=== PATIENT | female | born 2005 | race Caucasian/White ===

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

== ENCOUNTER 2025-03-28 16:46 | Emergency (ER) | payer OTHER, SELFPAY ==
--- OUTSIDE RECORDS SUMMARY | 2025-03-28 16:48 | XMS_ITS | Clinical Summary ---
Author Organization [facility] Address [address] [place] [address] Phone Care Team Providers Care Bow Machine Operator Name Role Phone Heather Holcomb MD Primary Care Provider Allergies No known active allergies Medications LevETIRAcetam (Keppra) 1000 MG Tablet Take 1,000 mg by mouth 2 times daily. Active Cholecalciferol (Vitamin D) 2000 UNIT Tablet Take 1 Tablet by mouth daily. Active Vitamin B-6 (PYRIDOXINE) 50 MG Tablet Take 50 mg by mouth 2 times daily. Active Active Problems Problem Noted Date Diagnosed Date Rapid heart rate 10/31/2024 Encounters Date Type Department Care Team Description 02/08/2025 1:14 AM CDT - 02/08/2025 2:41 AM CDT Emergency [facility] Emergency [address] [place] [address] Ty Webber MD Back pain Discharge Disposition: Discharged to home or Selfcare 02/08/2025 Travel from Last 3 Months Social History Tobacco Use Types Packs/Day Years Used Date Smoking Tobacco: Never Smokeless Tobacco: Never Tobacco Cessation:Counseling Given: Not Answered Alcohol Use Standard Drinks/Week Comments Never 0 (1 standard drink = 0.6 oz pur e alcohol) Comments No Sex and Gender Information Value Date Recorded Sex Assigned at Not on file Legal Sex Female 10:52 PM CDT Gender Identity Not on file Sexual Orientation Not on file Last Filed Vital Signs Vital Sign Reading Time Taken Comments Blood Pressure 142/89 02/08/2025 1:18 AM CDT Pulse 87 02/08/2025 1:18 AM CDT Temperature 36.9 C (98.5 F) 02/08/2025 1:18 AM CDT Respiratory Rate 16 02/08/2025 1:18 AM CDT Oxygen Saturation 100% 02/08/2025 1:18 AM CDT Inhaled Oxygen Concentration - - Weight 98.3 kg (216 lb 11.4 oz) 02/08/2025 1:18 AM CDT Height 167.6 cm (5' 6) 02/08/2025 1:18 AM CDT Body Mass Index 34.98 02/08/2025 1:18 AM CDT Plan of Treatment Health Maintenance Due Date Last Done Comments Hepatitis C Virus (HCV) Screening 2005 Influenza Immunization (#1) 02/23/202505/26, 03/26/2020, 04/09/2014 SARS-COV-2 Immunization ( season) 2025 01/18/2021, 12/21/2020 Respiratory Syncytial Virus (RSV) Immunization (Adult) (1 - 1-dose 75+ series) 2080 Hepatitis B Immunization Completed 006, 2005, 2005, Additional history exists Pneumococcal Immunization Combined Aged Out 03/27/2006, 2005, 2005, Additional history exists No longer eligible based on patient's age to complete this topic Hepatitis A Immunization Discontinued 11/05/2006, 08/2005 Measles Mumps Rubella (MMR) Immunization Discontinued 02/02/2011, 03/27/2006 Polio (IPV) Immunization Discontinued 011, 2005, 2005, Additional history exists Varicella Immunization Discontinued 02/02/2011, 2005 DTaP/Tdap/Td Immunization Discontinued 2015, 02/02/2011, 11/05/2006, Additional history exists TdaP Immunization Completed 04/28/2016 Human Papillomavirus (HPV) Immunization Completed 11/15/2016, 04/28/2016 Meningococcal Immunization (ACWY) Completed 06/21/2021, 04/28/2016 Meningococcal B Immunization Completed 12/29/2022, 06/21/2021 Rotavirus Immunization Aged Out No lo nger eligible based on patient's age to complete this topic Procedures Procedure Name Priority Date/Time Associated Diagnosis Comments CBC WITH AUTO DIFFERENTIAL STAT 02/08/2025 1:31 AM CDT LIPASE STAT 02/08/2025 1:31 AM CDT COMPLETE BLOOD COUNT (CBC) WITH DIFF STAT 02/08/2025 1:31 AM CDT CMP (COMPREHENSIVE METABOLIC PANEL) STAT 02/08/2025 1:31 AM CDT from Last 3 Months Results * (ABNORMAL) CBC with Auto Differential (02/08/2025 1:31 AM CDT) WBC 8.27 4.00 - 12.00 10(3)/mcL 02/08/2025 1:42 AM CDT [facility] RBC 4.26 3.80 - 5.30 10(6)/mcL 02/08/2025 1:42 AM CDT [facility] HEMOGLOBIN (HGB) 13.1 12.0 - 15.8 g/dL 02/08/2025 1:42 AM CDT [facility] HEMATOCRIT (HCT) 38.5 36.0 - 47.0 % 02/08/2025 1:42 AM CDT [facility] MCV 90.4 82.0 - 96.0 fL 02/08/2025 1:42 AM CDT [facility] MCH 30.8 26.0 - 34.0 pg 02/08/2025 1:42 AM CDT [facility] MCHC 34.0 31.0 - 36.0 g/dL 02/08/2025 1:42 AM CDT [facility] PLATELET COUNT 266 140 - 440 10(3)/mcL 02/08/2025 1:42 AM CDT [facility] RDW 11.9 11.8 - 15.5 % 02/08/2025 1:42 AM CDT [facility] MPV 11.8 9.7 - 12.4 fL 02/08/2025 1:42 AM CDT [facility] NEUTROPHILS 75.3(H) 47.0 - 73.0 % 02/08/2025 1:42 AM CDT [facility] LYMPHOCYTES 11.7(L) 18.0 - 42.0 % 02/08/2025 1:42 AM CDT [facility] MONOCYTES 12.0 4.0 - 12.0 % 02/08/2025 1:42 AM CDT [facility] EOSINOPHILS 0.2 0.0 - 5.0 % 02/08/2025 1:42 AM CDT [facility] BASOPHILS 0.4 0.0 - 1.0 % 02/08/2025 1:42 AM CDT [facility] IMMATURE GRANULOCYTE 0.4 0.0 - 0.4 % 02/08/2025 1:42 AM CDT [facility] Comment:Immature Granulocyte s includes Metamyelocytes, Myelocytes, and Promyelocytes. ABSOLUTE NEUTROPHILS 6.23 1.60 - 7.70 10(3)/[facility] 02/08/2025 1:42 AM CDT [facility] ABSOLUTE LYMPHOCYTES 0.97(L) 1.30 - 3.20 10(3)/[facility] 02/08/2025 1:42 AM CDT [facility] ABSOLUTE MONOCYTES 0.99 0.20 - 1.00 10(3)/[facility] 02/08/2025 1:42 AM CDT [facility] ABSOLUTE EOSINOPHIL 0.02 0.00 - 0.40 10(3)/[facility] 02/08/2025 1:42 AM CDT [facility] ABSOLUTE BASOPHILS 0.03 0.00 - 0.10 10(3)/[facility] 02/08/2025 1:42 AM CDT [facility] ABSOLUTE IMMATURE GRANULOCYTE 0.03 0.00 - 0.03 10 (3) mcL. 02/08/2025 1:42 AM CDT [facility] NRBC PER 100 WBC 0 02/09/20 25 1:42 AM CDT [facility] Blood Venipuncture / Unknown 02/08/2025 1:31 AM CDT 02/08/2025 1:40 AM CDT Ty Webber MD HEMATOLOGY ORDERABLES Fin al Result Performing Organization Address [facility]/ZIP Co de Phone Number [facility] [address] [place] [address] * Lipase [id number] (02/08/2025 1:31 AM CDT) LIPASE 33 8 - 78 U/L 02/08/2025 1:59 AM CDT [facility] Blood Venipuncture / Unknown 02/08/2025 1:31 AM CDT 02/08/2025 1:40 AM CDT Ty Webber MD CHEMISTRY ORDERABLES Alejandra l Result Performing Organization Address [facility]/ZIP Co de Phone Number [facility] [address] [place] [address] * (ABNORMAL) Comprehensive Metabolic Panel (Cmp) [id number] (02/08/2025 1:31 AM CDT) SODIUM 139 136 - 145 mmol/L 02/08/2025 1:59 AM CDT [facility] POTASSIUM 3.7 3.5 - 5.1 mmol/L 02/08/2025 1:59 AM CDT [facility] CHLORIDE 103 98 - 107 mmol/L 02/08/2025 1:59 AM CDT [facility] CO2, VENOUS 24 22 - 30 mmol/L 02/08/2025 1:59 AM CDT [facility] ANION GAP 15.7 <18.0 mmol/L 02/08/2025 1:59 AM CDT [facility] GLUCOSE 137(H) 70 - 99 mg/dL 02/08/2025 1:59 AM T [facility] BUN 13 5 - 18 mg/dL 02/08/2025 1:59 AM [facility] CREATININE, BLOOD 0.82 0.60 - 1.00 mg/dL 02/08/2025 1:59 AM T [facility] BUN/CREATININE RATIO 16 12 - 20 ratio 02/08/2025 1:59 AM T [facility] TOTAL PROTEIN 8.2(H) 6.0 - 8.0 g/dL 02/08/2025 1:59 AM T [facility] ALBUMIN 4.8 3.5 - 5.0 g/dL 02/08/2025 1:59 AM [facility] A/G RATIO 1.4 1.0 - 2.2 02/08/2025 1:59 AM T [facility] CALCIUM 9.6 8.7 - 10.5 mg/dL 02/08/2025 1:59 AM T [facility] T BILI 1.6(H) 0.2 - 1.2 mg/dL 02/08/2025 1:59 AM [facility] SGOT (AST) 777(H) <43 U/L 02/08/2025 1:59 AM [facility] SGPT (ALT) 450(H) <56 U/L 02/08/2025 1:59 AM [facility] ALKALINE PHOSPHATASE 108 40 - 150 U/L 02/08/2025 1:59 AM [facility] GFR, ESTIMATED >60 >=60 02/08/2025 1:59 AM [facility] Comment: Creatinine Clearance is the preferred criteria for selecting drug dose adjustments in renally impaired patients. The GFR is provided as additional pertinent clinical information. GFR is reported in mL/min/1.73 sq m. Calculation based on the 2020 Chronic Kidney Disease Epidemiology Collaboration (CKD-EPI) equation refit without adjustment for race. UNABLE TO CALCULATE GFR, EST. 025 1:59 AM CDT [facility] Comment: Creatinine Clearance is the preferred criteria for selecting drug dose adjustments in renally impaired patients. The GFR is provided as additional pertinent clinical information. GFR is reported in mL/min/1.73 sq m. Calculation based on the 2009 Chronic Kidney Disease Epidemiology Collaboration (CKD-EPI). GFR, EST. NONAFRICAN 02/08/2025 1:59 AM CDT [facility] Comment: Creatinine Clearance is the preferred criteria for selecting drug dose adjustments in renally impaired patients. The GFR is provided as additional pertinent clinical information. GFR is reported in mL/min/1.73 sq m. Calculation based on the 2009 Chronic Kidney Disease Epidemiology Collaboration (CKD-EPI). Blood Venipuncture / Unknown 02/08/2025 1:31 AM CDT 02/08/2025 1:40 AM CDT Ty Webber MD CHEMISTRY ORDERABLES Alejandra l Result [facility] [address] [place] [address] from Last 3 Months Insurance MEDICAID [employer] [facility]S [facility] [id number] [employer]ICAID [employer]ID [employer]ID [employer] Care Teams Bow Machine Operator Relationship Specialty Start Date End Date Heather Holcomb MD [address] [facility] [address] [place] [address] PCP - General Pediatrics 04/26/21
--- OUTSIDE RECORDS SUMMARY | 2025-03-28 16:48 | XMS_ITS | Clinical Summary ---
Author Organization [facility] Address [address] [place] [address] Care Team Providers Care Gym Teacher Name Role Phone Heather Holcomb MD Primary Care Provider Source Comments [facility],non-owned Affiliates and Associated Physician Practices is amultiple site organization consisting of ambulatory clinics and hospital sitesin [place], [place], [place] and [place]. This disclosure is being madepursuant to the Care Everywhere program and may not contain all information available regarding this patient. Last updated 18.[facility] Allergies No known active allergies Medications * Be aware that medications may not be up to date on this document. Alwaysverify current medications with the patient. diazePAM (Valtoco) 20 MG (2 x 10 MG/0.1ML) nasal spray [place] 0.2 mL into the nose as needed for Seizures Use first device to spray 0.1 mL into one nostril and the second device to spray 0.1 mL in the other nostril. Only use if seizure lasting 5 minutes or longer. 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 Encounters Date Type Department Care Team Description 01/19/2025 Refill [facility] Pediatric[facility] - Neurology [address] [place] [id number] Jorge Malagon MD Refill Request 01/09/2025 Telephone [facility] Pediatrics - Neurology [address] [place] [phone] Augustin Hernandez MD Medication Problem 01/07/2025 1:00 PM CDT - 01/08/2025 10:42 AM CDT Hospital Encounter [facility] [address] [phone] Trenton Kang MD Pediatric Neurology Discharge Disposition: Home or Self Care 01/07/2025 Travel from Last 3 Months Immunizations Immunization Administration Dates Next Due Cov8020select primary monoval ent 12+ yr 0.3mL Purple cap 01/18/2021 DTAP/HEP B/IPV 2005,2005,2005 DTAP/IPV 02/02/2011 DTaP VACCINE IM (6wk-6yrs) 11/05/2006 HEP A PED/ADULT VACCINE 11/05/2006,03/27/2006 HEP B VACCINE, PED/ADOL 2005 HIB VACCINE 03/27/2006, 6,2005,05/10 Human Papilloma Virus Nineva lent Vaccine 11/15/2016,04/28/2016 INFLUENZA VACCINE, QUADR. (F LUZONE; FLULAVAL; FLUARIX; AFLURIA QUADRIVALENT; 6MO+), 0.5 ML (IIV4) 06/21/2021,03/26/2020 MAINE VACCINE QUAD LAIV4 PF NASAL 04/09/2014 MENINGOCOCCAL ACWY (MCV4P) VAC IM 06/21/2021,09/2015 MMR VACCINE 02/02/2011 MMR/VARICELLA 03/27/2006 Meningococcal B Recombinant 2 Dose, IM 3,06/21/2021 PNEUMOCOCCAL PCV7 CONJ, PEDS 03/27/2006, 2005,2005,05/10 TDAP, HISTORIC VACCINE 04/28/2016 VARICELLA 02/02/2011 Social History Tobacco Use Types Packs/Day Years Used Date Smoking Tobacco: Never Passive Smoke Exposure: Never Smokeless Tobacco: Never Tobacco Cessation:Counseling Given: Not Answered Alcohol Use Standard Drinks/Week Comments Not Asked 0 (1 standard drink = 0.6 oz pur e alcohol) AUDIT-C Answer Date Recorded Q1: How often do you have a drink containing alc ohol? 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 Gender Identity Not on file Sexual Orientation Not on file Last Filed Vital Signs Vital Sign Reading Time Taken Comments Blood Pressure 118/73 01/08/2025 8:50 AM CDT Pulse 80 01/08/2025 8:50 AM CDT Temperature 36.4 C (97.6 F) 01/08/2025 8:50 AM CDT Respiratory Rate 18 01/08/2025 8:50 AM CDT Oxygen Saturation 100% 01/08/2025 8:50 AM CDT Inhaled Oxygen Concentration - - Weight 99.8 kg (220 lb 0.3 oz) 01/07/2025 2:00 P M CDT Height 171 cm (5' 7.32) 01/07/2025 2:00 PM CDT Body Mass Index 34.13 01/07/2025 2:00 PM CDT Plan of Treatment Health Maintenance Due Date Last Done Comments HIV SCREENING 2020 CHLAMYDIA/GONORRHEA SCREENING 2021 HEPATITIS C SCREENING 03/07/2023 DEPRESSION SCREENING 06/25/2024 COVID-19 VACCINE (2024-2 6 season) 2025 01/18/2021, 12/21/2020 INFLUENZA VACCINE (#1) 2025 , 03/26/2020, 04/09/2014 DTAP/TDAP/TD VACCINES (7 - T d or Tdap) 04/28/2026 04/28/2016, 02/02/2011, 11/05/2006, Additional history exists ZOSTER VACCINE (1 of 2) 2055 HEPATITIS B VACCINE Completed 2005, 2005, 2005, Additional history exists HIB VACCINE Completed 03/27/2006, 10/2005, 2005, Additional history exists PNEUMOCOCCAL VACCINE Completed 03/27/2006, 2005, 2005, Additional history exists HPV VACCINE Completed 11/15/2016, 04/28/2016 MENINGOCOCCAL GROUPS A/C/Y/W VACCINE Completed 06/21/2021, 04/28/2016 MENINGOCOCCAL (Group B) VACC INE SHARED DECISION-MAKING Completed 12/29/2022, 06/21/2021 Procedures Procedure Name Priority Date/Time Associated Diagnosis Comments EEG VIDEO MONITORING Routine 01/08/2025 10:36 AM CDT 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 (HCC) LEVETIRACETAM LEVEL Timed 01/07/2025 7 :56 PM CDT 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 (HCC) from Last 3 Months Results * EEG VIDEO MONITORING (01/08/2025 10:36 AM CDT) Narrative [facility] - 01/08/2025 10:36 AM CDT Trenton Kang MD 01/08/2025 12:56 PM Name: Neha Garcia CSN: [id number] Type: correction monitoring Date of Test: 12/23/2024 Ordering Provider: Trenton Kang MD PCP: Heather Holcomb MD Diploma Medical Assistant: Felix Irene MD UKE DRIVER MONITORING (LTM) EEG REPORT INDICATION: Characterize events Assess response to treatment Age: [age] year old LOCATION: Epilepsy monitoring unit DURATION: Start: 01/07/2025 13:41 End: 01/08/2025 10:06 The total duration for the report is for about 20 hours. PROCEDURE: A 21 channel digital audiovisual electroencephalogram was performed at the patient's bedside. The 10/20 International system of electrode placement was used and both bipolar and referential electrode montages were monitored. LTM EEG BACKGROUND During the awake state with eyes closed the background consists of 10 Hz posterior dominant rhythm which attenuates appropriately with eye opening. The recording is continuous. There is a well-developed anterior-posterior gradient. No significant asymmetries of background activity are noted. With drowsiness, there is waxing and waning of the dominant rhythm with eventual replacement by a mixture of beta, alpha and theta activity. As the patient enters stage II of sleep, symmetrical spindles and vertex sharp waves are present. Arousal is unremarkable. Slow wave sleep is noted during the EEG record.. Eye closure sensitivity phenomenon is present. Activation Procedures: Hyperventilation was not done due to patients preference. Photic stimulation using a step-barrios increase in photic frequency results in driving responses with photoparoxysmal effect mostly involving right posterior region. LTM EVENTS Interictal: There are occasional generalized 2-4 hz spike and polyspike with slow wave noted during sleep and awake state. The discharges are up to 3 seconds in duration. The bursts with rhythmic 3 hz delta are associated with eyelid myoclonia. None are associated with behavior arrest or unresponsiveness. Ictal: Clinically patient is noted to have eyelid fluttering for 1-2 seconds. Electrographically, following is sequence of onset and progression: posterior polyphasic sharp beta leading into generalized rhythmic 3 hz delta with notches and blended spikes, duration up to 3 seconds. Nearly always she raises her hand to the eyes during or immediately afterwards. No associated change in responsivity or behavior arrest. MARKED EVENTS: There are 10 marked event/s. 14:15, 18:51, 20:54, 22:26, 04:13, 07:59, 08:03, 08:04, 08:05, 08:10. LTM EEG INTERPRETATION This EEG recorded is moderately abnormal in awake and asleep states due to: Photoparoxysmal response in form of right posterior spikes without clinical manifestations Generalized epileptogenic dysfunction including 2-4 hz rhythmic patterns. Recorded episodes of eyelid myoclonia with generalized 3 hz rhythmic epileptiform EEG correlate LTM CLINICAL CORRELATION The EEG is diagnostic of epilepsy with generalized mechanism of seizure onset. 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 Recording verifies incomplete control of eyelid myoclonic seizures. None of the recorded episodes entailed a clear change in level of awareness. EKG is obtained only for the purpose of identifying artifact and will not be clinically interpreted. Therefore, clinical correlation is recommended. Augustin Hernandez MD Resident in pediatric neurology Entire EEG reviewed. Agree with report. Trenton Kang MD us Jorge [place] MD NEUROLOGY ORDERABLES Edited Resu lt - Final [facility] * LEVETIRACETAM LEVEL (01/07/2025 7:56 PM CDT) Levetiracetam 15 10 - 40 ug/mL 01/10/2025 2:37 PM CDT [facility] ([facility]) Comment: INTERPRETIVE INFORMATION: Keppra (Levetiracetam) Therapeutic Range: 10-40 ug/mL Toxic: Not well Established Pharmacokinetics of levetiracetam are affected by renal function. Adverse effects may include somnolence, weakness, headache and vomiting. This levetiracetam (Keppra) immunoassay uses the edenes reagents, which has known cross-reactivity with the drug brivaracetam (Briviact) and may report inaccurate results. Patients transitioning from levetiracetam to brivaracetam or those who are using both medications should not monitor drug concentrations with the edenes assay. These patients should be monitored using a validated chromatographic methodology that distinguishes between drugs to determine drug concentrations. Performed By: [facility] [address] [place] [address] Recreation Counselor: Lupillo Denton MD, PhD CLIA Number: [id number] Blood BLOOD SPECIMEN / Unknown Lab Venipuncture / Unknown 01/07/2025 7:56 PM CDT 01/07/2025 8:12 PM CDT Tracey Worthy [employer] REP LAB - THERAPEUTIC DRUG MONITORING ORDERABLES Final Result [facility] ([facility]) [address] [place] [address], [facility] from Last 3 Months Insurance [facility] Advance Directives * Full Code (Latest Code Status on File) Date Activated Date Inactivated Comments 08/04/2021 3:09 PM 08/05/2021 2:13 PM Care Teams Gym Teacher Relationship Specialty Start Date End Date Heather Holcomb MD PCP - General 08/19/14
--- OUTSIDE RECORDS SUMMARY | 2025-03-28 16:48 | XMS_ITS | Clinical Summary ---
Author Organization [facility] Address [address] [place] [address] Care Team Providers Care Mexican Food Cook Name Role Phone Jorge Malagon MD Unavailable [phone] No, Physician Primary Care Provider [phone] Allergies No known active allergies Medications cholecalciferol (VITAMIN D-3) 2000 unit tablet Take by mouth daily Active pyridoxine (VITAMIN B-6) 50 mg tablet Take 1 tablet (50 mg total) by mouth daily Active ondansetron ODT (ZOFRAN-ODT) 8 mg disintegrating tablet Take 1 tablet (8 mg total) by mouth every 8 (eight) hours as needed for nausea or vomiting 30 tablet 03/09/20 25 Active diazePAM (Valtoco) 20 mg/2 spray (10mg/0.1mL x2) spray,non-aerosol Administer 20 mg into affected nostril(s) as needed 11/09/19 23 Active levETIRAcetam (KEPPRA) 500 mg tablet Take 2 tablets (1,000 mg total) by mouth 2 (two) times a day Active oxyCODONE-acetamin ophen (PERCOCET) 5-325 mg per tabletIndications: Pain Take 1-2 tablets by mouth every 8 (eight) hours as needed for pain 20 tablet 03/23/20 25 Active levETIRAcetam (KEPPRA) 750 mg tabletIndications: 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) Take 2 tablets (1,500 mg total) by mouth 2 (two) times a day 120 tablet 5 12/17/19 25 025 Discontin ued(Dupli juan order) Active Problems Problem Noted Date Diagnosed Date Gallstones 03/12/2025 Complex partial seizures ashley lving to generalized tonic-clonic seizures 12/16/2024 Closed supracondylar fracture of humerus 015 Encounters Date Type Department Care Team Description 03/23/2025 7:36 AM CDT Anesthesia Event [facility] Operating Room [address] [place] [address] Oseas Araujo MD Alexander, Jeffrey Michael, 03/23/2025 7:30 AM CDT - 03/23/2025 8:45 AM CDT Surgery [facility] Operating Room [address] [place] [address] Mendoza Crum MD LAPAROSCOPIC CHOLECYSTECTOMY 03/23/2025 5:46 AM CDT - 03/23/2025 11:38 AM CDT Hospital Encounter [facility] Operating Room [address] [place] [address] Mendoza Crum MD Gallstones Discharge Disposition: Discharge to home or self care 03/12/2025 11:00 AM CDT Office Visit [address] [place] [address] Mendoza Crum MD Gallstones (Primary Dx) 03/09/2025 4:59 AM CDT - 03/09/2025 7:12 AM CDT Emergency [facility] Emergency Department [address] [place] [address] Chaitanya Beltre MD Biliary colic (Primary Dx) Discharge Disposition: Discharge to home or self care 02/18/2025 7:12 AM CDT - 02/18/2025 10:01 AM CDT Emergency [facility] Emergency Department [address] [place] [address] Meli Power MD Chronic bilateral thoracic back pain (Primary Dx) Discharge Disposition: Discharge to home or self care from Last 3 Months Surgical History Surgery Date Site/Laterality Comments FRACTURE SURGERY elbow as a child Medical History Medical History Date Comments Epilepsy (HCC) abscense last on e was November 28 2022 Palpitations Family History Medical History Relation Name Comments Diabetes Other 5 Family Hx Diabetes mellit us; Heart attack Other 5 Family Hx Myocardial infa rction; Before age 60 Hypertension Other 5 Family Hx Hypertension; Cancer Other 6 Family hx Cancer; Relation Name Status Comments Other 1 Family Hx Alive Other 2 Family Hx Alive Other 3 Family Hx Alive Other 4 Family hx Alive Other 5 Family Hx Other 6 Family hx Social History Tobacco Use Types Packs/Day Years Used Date Smoking Tobacco: Never Smokeless Tobacco: Never Tobacco Cessation:Counseling Given: Not Answered Alcohol Use Standard Drinks/Week Comments Never 0 (1 standard drink = 0.6 oz pur e alcohol) AUDIT-C Answer Date Recorded Frequency of Alcohol Consumption Not on file 03/23/2025 Q2: How many drinks containi ng alcohol do you have on a typical day when you are drinking? Patient does not drink Frequency of Binge Drinking Not on file 02/24 Personal Safety Answer Date Recorded Have you ever been in or are you currently in a harmful physical or emotional relationship or is someone making you feel afraid or unsafe? Denies 03/23/2025 Comments No Sex and Gender Information Value Date Recorded Sex Assigned at Not on file Legal Sex Female 3:00 AM [employer]IV[employer] Gender Identity Not on file Sexual Orientation Not on file Obstetrics History Para Term AB IAB SAB Ectopic Multiple Livin g Live Births 0 0 0 0 0 0 0 0 0 0 0 Last Filed Vital Signs Vital Sign Reading Time Taken Comments Blood Pressure 116/73 03/23/2025 10:30 AM CDT Pulse 62 03/23/2025 10:30 AM CDT Temperature 36.6 C (97.9 F) 03/23/2025 10:30 AM CDT Respiratory Rate 16 03/23/2025 10:30 AM CDT Oxygen Saturation 96% 03/23/2025 10:30 AM CDT Inhaled Oxygen Concentration - - Weight 99.5 kg (219 lb 5.7 oz) 03/23/2025 6:25 A M CDT Height 167.6 cm (5' 6) 03/23/2025 6:25 AM CDT Body Mass Index 35.41 03/23/2025 6:25 AM CDT Plan of Treatment Health Maintenance Due Date Last Done Comments Depression Screening 2005 Hepatitis C Screening 2005 Regular Well Visit/Exam 18-64 2023 Covid-19 Vaccine (3 2024-2 6 season) 2025 01/18/2021, 12/21/2020 Influenza Vaccine (#1) 2025 , 03/26/2020, 04/09/2014 DTaP/Tdap/Td Vaccine (7 - Td or Tdap) 04/28/2026 04/28/2016, 02/02/2011, 11/05/2006, Additional history exists Hepatitis B Screening Completed 2005 , 2005, 2005, Additional history exists Pneumococcal vaccine <65 Completed 006, 2005, 2005, Additional history exists Varicella Vaccines Completed 02/02/2011, 03/27/2006 HPV Vaccines Completed 11/15/2016, 04/28/2016 Meningococcal Vaccine Completed 06/21/2021, 016 Meningococcal B Vaccine Completed 12/29/2022, 06/21 Procedures Procedure Name Priority Date/Time Associated Diagnosis Comments SURGICAL PATHOLOGY Routine 03/23/2025 9: 58 AM CDT Gallstones AR AN ELECTIVE ENDOTRACHEAL AIRWAY Routine 03/23/2025 7:55 AM CDT LAPAROSCOPIC CHOLECYSTECTOMY 03/23/2025 7:35 AM CDT Gallstones POCT HCG, URINE Routine 03/23/2025 6:10 AM CDT POCT HCG, URINE STAT 03/09/2025 6:43 AM CDT URINALYSIS AND REFLEX TO MICROSCOPIC AND CULTURE STAT 03/09/2025 6:33 AM CDT EGFR STAT 03/09/2025 5:18 AM CDT DIFFERENTIAL AUTO STAT 03/09/2025 5:1 8 AM CDT LIPASE STAT 03/09/2025 5:18 AM CDT COMPREHENSIVE METABOLIC PANEL STAT 03/09/2025 5:18 AM CDT CBC WITH AUTO DIFFERENTIAL STAT 03/09/2025 5:18 AM CDT URINALYSIS, MICROSCOPIC ONLY STAT 02/18/2025 8:54 AM CDT URINALYSIS AND REFLEX TO MICROSCOPIC AND CULTURE STAT 02/18/2025 8:54 AM CDT XR SPINE LUMBAR 2 OR 3 VIEWS ED 02/18/2025 7:46 AM CDT XR SPINE THORACIC 3 VIEWS ED 02/18/2025 7:46 AM CDT from Last 3 Months Results * Surgical pathology (03/23/2025 9:58 AM CDT) Tissue (Gallbladder) 03/23/2025 8:24 AM CDT Narrative PATHOLOGY [facility] - 03/24/2025 2:54 PM CDT EPIC results best viewed via link to PDF [facility] Department of Pathology [address] [place] [address] Note to Patients: This report may contain a detailed description of human tissue sent by a health care provider to the laboratory for pathologic evaluation. The content of this report is essential for diagnosis and may provide important critical findings. This information may be unfamiliar to patients to review without a medical professional present. It is advised that the patient review this report in the presence of a health care provider who can answer questions and explain the details. Final Report Patient Name: NEHA GARCIA I. Address: [address] [place] [address]- Gender: F : 2005 (Age: 20) Service: Surgery Location: [facility] Hospital #: [id number] Patient Type: [facility] Taken: 03/23/2025 Received: 03/23/2025 Accessioned: 03/23/2025 Reported: 03/24/2025 Physician(s):Mendoza Crum M.D. Diagnosis: Gallbladder, laparoscopic cholecystectomy: - Gallbladder with sparse chronic inflammation and focal cholesterolosis. - Cholelithiasis. - No evidence of malignancy. Darron Cruz MD Report Electronically Reviewed and Signed Out By Darron Cruz MD 03/24/2025 14:54:26 Specimen(s) Received: A: Gallbladder Microscopic Description: Microscopic examination of the gallbladder specimen shows sparse chronic inflammation and focal cholesterolosis. There is no evidence of malignancy. Clinical History: Gallstones. Laparoscopic cholecystectomy. Gross Description: The specimen is received in a single container labeled NEHA GARCIA and gallbladder. It is a gallbladder that measures 7 x 4 cm. The serosa is pink-mcfarland and smooth. The wall measures up to 0.1 cm in thickness. The lumen contains green brown bile and multiple yellow granular stones between 1 and 9 mm. The mucosa is mcfarland and velvety. The cystic duct margin is inked blue. Represented in one cassette. Tami Connelly R.N., P.A./Allan Israel M.D. REPORT IMAGES AND SCANNED DOCUMENTS, IF INCLUDED, ONLY VIEWABLE IN PDF VERSION OF REPORT The performance characteristics of some immunohistochemical stains, fluorescence in-situ hybridization tests and immunophenotyping by flow cytometry cited in this report (if any) were determined by the Surgical Pathology Department at [facility] as part of an ongoing microbiology quality control technician program and in compliance with federally mandated regulations drawn from the Clinical Laboratory Improvement Act of 1988 (CLIA '88). Some of these tests rely on the use of analyte specific reagents and are subject to specific labeling requirements by the US Food and Drug Administration. Such diagnostic tests may only be performed in a facility that is certified by the Department of Health and Human Services as a high complexity laboratory under CLIA '88. The FDA has determined that such clearance or approval is not necessary. This test is used for clinical purposes. It should not be regarded as investigational or for research. Nevertheless, federal rules concerning the medical use of analyte specific reagents require that the following disclaimer be attached to the report: This test was developed and its performance characteristics determined by the Surgical Pathology Department [facility]. It has not been cleared or approved by the U. S. Food and Drug Administration. Note for decalcified specimens: This assay has not been validated on decalcified tissues. Results should be interpreted with caution given the possibility of false negativity on decalcified specimens Mendoza Crum MD LAB PATHOLOGY ORDER LILI Final Result PATHOLOGY [facility] [address] [place] [address] * AR AN ELECTIVE ENDOTRACHEAL AIRWAY (03/23/2025 7:55 AM CDT) Narrative Sarika Reynoso CRNA - 03/23/2025 7:55 AM CDT Sarika Reynoso CRNA 03/23/2025 7:56 AM Airway Patient location: OR Urgency: elective Date/time: 03/23/2025 7:43 AM Indications for airway management: anesthesia and airway protection Difficult airway: no Staff: Placed by: PROPERTY ASSESSMENT MONITOR: Sarika Reynoso CRNA Emergent airway documentation: Risks and benefits discussed: yes Consent obtained: yes Consent given by: patient Airway prep: Preoxygenated: yes Patient position: sniffing Mask difficulty assessment: 1 - vent by mask Sedation level during airway: GA Final airway details: Final airway type: endotracheal airway Tube type: ETT ETT size: 7.0 mm Cuffed: yes Technique used for successful ETT placement: video laryngoscopy Devices/Methods used in placement: intubating stylet Insertion site: oral Blade type: Obi Video blade type: Garza Blade size: 3 Cormack-Lehane (video): grade I - full view of glottis Cuff volume: 6 mL Cuff inflated with: air ETT to lips: 21 cm Placement verified by: auscultation and CO2 detection Airway secured with: silk tape and transpore tape Number of attempts: 1 Sarika Reynoso CRNA ANESTHESIA ORDERABLES Final Result * POCT hCG, urine (03/23/2025 6:10 AM CDT) HCG, ur, POC Negative Negative Lot Number [id number] QC Backgroud Clear Acceptable QC Control Line Acceptable Urine 03/23/2025 6:10 AM CDT Barrett Tavares DO POINT OF CARE TEST ORDERABLES Final Result * POCT hCG, urine (03/09/2025 6:43 AM CDT) HCG, ur, POC Negative Negative Lot Number [id number] QC Backgroud Clear Acceptable QC Control Line Acceptable Urine 03/09/2025 6:43 AM CDT Chaitanya Beltre MD POINT OF CARE TEST ORDERABLES Final Result * Urinalysis reflex to microscopic and culture Urine (03/09/2025 6:33 AM CDT) Color, ur Straw Yellow Clarity, ur Clear Clear [facility] ([facility]) Specific gravity, ur 1.007 1.003 - 1.030 [facility] ([facility]) pH, urine 5.5 [facility] ([facility]) Comment: Interpretive Data U rine pH is affected by diet, medications, systemic acid-base disturbances, and renal tubular function. pH may affect urinary stone formation. For example, urine pH below 6.0 may help reduce the tendency for calcium phosphate stones and pH greater than 6.0 may reduce the tendency for uric acid stone formation. Source: [facility] [employer] Current Interpretive Data was last revised on 2017 Protein, ur ql Negative Negative [facility] ([facility]) Glucose, ur ql Negative Negative [facility] ([facility]) Ketones, ur Negative Negative [facility] ([facility]) Bilirubin, ur Negative Negative [facility] ([facility]) Blood, ur Negative Negative [facility] ([facility]) Urobilinogen, ur <2.0 <2.0 mg/dL [facility] ([facility]) Nitrite, ur Negative Negative [facility] ([facility]) Leukocyte esterase, ur Negative Negative [facility] ([facility]) UA reflex comment Reflex conditions for microscopic UA and culture not met. [facility] ([facility]) Urine 03/09/2025 6:33 AM CDT 03/09/2025 6:48 AM CDT us Chaitanya Beltre MD LAB MICROBIOLOGY - GENERAL ORDERABLES Final Result [facility] ([facility]) 1 [facility] Department [place] [address] * eGFR (03/09/2025 5:18 AM CDT) eGFR >90 >=60 mL/min/1. 73 m2 Comment: Interpretive Data Reference Interval Normal >/= 90 mL/min/1.73m2 Mildly decreased* 60 - 89 mL/min/1.73m2 Mildly to moderately decreased 45 - 59 mL/min/1.73m2 Moderately to severely decreased 30 - 44 mL/min/1.73m2 Severely decreased 15 - 29 mL/min/1.73m2 Kidney Failure < 15 mL/min/1.73m2 *Relative to young adult level Estimated glomerular filtration rate is determined by the 2020 CKD-EPI equation recommended by the National Kidney Foundation (A Unifying Approach to GFR Estimation: Recommendations of the NKF-ASK Task Force on Reassessing the Inclusion of Race in Diagnosing Kidney Disease, JASN 2020). The CKD-EPI equation should not be used for patients with unstable renal function and has not been validated in children and those over 70. Current interpretive data was last reviewed 2021. Blood 03/09/2025 5:18 AM CDT 03/09/2025 5:21 AM CDT us Chaitanya Beltre MD LAB BLOOD ORDERABLE S Final Result [facility] 1 [facility] Department [place] [address] * (ABNORMAL) Differential, auto (03/09/2025 5:18 AM CDT) Neutrophil abs 4.98 1.50 - 6.50 K/cumm Imm gran abs 0.03 0.00 - 0.10 K/cumm [facility] ([facility]) Lymphocyte abs 2.18 0.80 - 3.30 K/cumm [facility] ([facility]) Monocyte abs 0.82(H) 0.20 - 0.80 K/cumm [facility] ([facility]) Eosinophil abs 0.10 0.00 - 0.50 K/cumm [facility] ([facility]) Basophil abs 0.03 0.00 - 0.10 K/cumm [facility] ([facility]) Neutrophil pct 61.1 % [facility] ([facility]) Comment: Interpretive Data Percent cell count reference ranges are not reported, since discordance with absolute values may lead to misinterpretation of CBC data. Current Interpretive Data was last revised on 2017. Imm gran pct 0.4 % [facility] ([facility]) Comment: Interpretive Data Percent cell count reference ranges are not reported, since discordance with absolute values may lead to misinterpretation of CBC data. Current Interpretive Data was last revised on 2017. Lymphocyte pct 26.8 % [facility] ([facility]) Comment: Interpretive Data Percent cell count reference ranges are not reported, since discordance with absolute values may lead to misinterpretation of CBC data. Current Interpretive Data was last revised on 2017. Monocyte pct 10.1 % [facility] ([facility]) Comment: Interpretive Data Percent cell count reference ranges are not reported, since discordance with absolute values may lead to misinterpretation of CBC data. Current Interpretive Data was last revised on 2017. Eosinophil pct 1.2 % [facility] ([facility]) Comment: Interpretive Data Percent cell count reference ranges are not reported, since discordance with absolute values may lead to misinterpretation of CBC data. Current Interpretive Data was last revised on 2017. Basophil pct 0.4 % [facility] ([facility]) Comment: Interpretive Data Percent cell count reference ranges are not reported, since discordance with absolute values may lead to misinterpretation of CBC data. Current Interpretive Data was last revised on 2017. Blood 03/09/2025 5:18 AM CDT 03/09/2025 5:21 AM CDT us Chaitanya Beltre MD LAB BLOOD ORDERABLE S Final Result [facility] ([facility]) 1 [facility] Department [place] [address] * CBC with auto differential (03/09/2025 5:18 AM CDT) WBC 8.14 3.80 - 9.90 K/cumm Hgb 12.3 11.9 - 15.5 g/dL [facility] ([facility]) Hct 37.2 35.6 - 45.5 % [facility] ([facility]) Plt 261 150 - 400 K/cumm [facility] ([facility]) MPV 11.4 9.1 - 12.3 fL [facility]) RBC 3.99 3.90 - 5.20 M/cumm [facility] ([facility]) MCV 93.2 81.3 - 96.4 fL [facility]) MCH 30.8 27.1 - 33.3 pg [facility]) MCHC 33.1 32.3 - 35.7 g/dL [facility]) RDW CV 11.8 11.1 - 14.9 % [facility]) RDW SD 40.0 35.7 - 48.1 fL [facility]) NRBC abs 0.00 0.00 - 0.01 K/cumm [facility] ([facility]) Blood 03/09/2025 5:18 AM CDT 03/09/2025 5:21 AM CDT us Chaitanya Beltre MD LAB BLOOD ORDERABLE S Final Result [facility] ([facility] [address] [facility] [place] [address] * (ABNORMAL) Lipase (03/09/2025 5:18 AM CDT) Lipase 124(H) 10 - 99 Units/L [facility] ([facility]) Blood 03/09/2025 5:18 AM CDT 03/09/2025 5:21 AM CDT us Chaitanya Belter MD LAB BLOOD ORDERABLE S Final Result [facility] 1 [facility] [place] [address] * (ABNORMAL) Comprehensive metabolic panel (03/09/2025 5:18 AM CDT) Sodium 138 135 - 145 mmol/L [facility] ([facility]) Potassium, pl 4.2 3.3 - 4.9 mmol/L [facility]) Chloride 105 97 - 110 mmol/L [facility]) CO2 21(L) 22 - 32 mmol/L [facility]) Anion gap 12 2 - 15 mmol/L [facility]) BUN 10 6 - 25 mg/dL [facility]) Creatinine 0.74 0.60 - 1.10 mg/dL [facility] ([facility]) Glucose 110 70 - 199 mg/dL [facility] ([facility]) Comment: Interpretive Data Fasting glucose >/= 126 mg/dl is diagnostic for diabetes. Fasting is defined as no caloric intake for at least 8 hours. Fasting glucose between 100 mg/dl to 125 mg/dl is diagnostic of prediabetes. In a patient with classic symptoms of hyperglycemia or hyperglycemic crisis, a random glucose >/= 200 mg/dl is diagnostic for diabetes. In the absence of unequivocal hyperglycemia, results should be confirmed by repeat testing. The classification and Diagnosis of Diabetes Diabetes Care 202; 46: S19-S40. Current interpretive data was last revised 2022. Calcium 9.4 8.5 - 10.3 mg/dL [facility]) Bilirubin, total 0.3 0.1 - 1.2 mg/dL [facility] ([facility]) Protein, pl 7.2 6.5 - 8.5 g/dL [facility] ([facility]) Albumin 4.2 3.5 - 5.0 g/dL [facility]) Alk phos 75 40 - 130 Units/L [facility]) ALT 40 7 - 45 Units/L [facility]) AST 55(H) 10 - 45 Units/L [facility] ([facility]) Comment:Hemolysis present. R esults may be affected. Blood 03/09/2025 5:18 AM CDT 03/09/2025 5:21 AM CDT us Chaitanya Beltre MD LAB BLOOD ORDERABLE S Final Result [facility] ([facility]) [address] Department [place] [address] * (ABNORMAL) Urinalysis reflex to microscopic and culture Urine (02/18/2025 8:54 AM CDT) Color, ur Yellow Yellow Clarity, ur Clear Clear [facility]) Specific gravity, ur 1.019 1.003 - 1.030 [facility] ([facility]) pH, urine 7.0 [facility] ([facility]) Comment: Interpretive Data U rine pH is affected by diet, medications, systemic acid-base disturbances, and renal tubular function. pH may affect urinary stone formation. For example, urine pH below 6.0 may help reduce the tendency for calcium phosphate stones and pH greater than 6.0 may reduce the tendency for uric acid stone formation. Source: [facility] Current Interpretive Data was last revised on 2017 Protein, ur ql Negative Negative [facility] ([facility]) Glucose, ur ql Negative Negative [facility] ([facility]) Ketones, ur Negative Negative [facility] ([facility]) Bilirubin, ur Negative Negative [facility] ([facility]) Blood, ur Negative Negative [facility] ([facility]) Urobilinogen, ur <2.0 <2.0 mg/dL [facility] ([facility]) Nitrite, ur Negative Negative [facility]) Leukocyte esterase, ur 2+(A) Negative [facility] ([facility]) UA reflex comment Reflex to microscopic UA will be performed. [facility] ([facility]) Urine 02/18/2025 8:54 AM CDT 02/18/2025 8:57 AM CDT us Meli Power MD LAB MICROBIOLOGY - GENERA L ORDERABLES Final Result [facility] ([facility] 1 [facility] [place] [address] * (ABNORMAL) Urinalysis, microscopic only (02/18/2025 8:54 AM CDT) WBC, ur 0-5 0 - 5 /HPF RBC, ur 0-2 0 - 2 /HPF [facility] ([facility]) Epithelial cells, squamous, ur 1-5 0 - 5 /HPF [facility] Mucous, ur Present(A) [facility] ([facility]) Culture Reflex Comment Reflex conditions for urine culture (WBC >10) not met. [facility] ([facility] Urine 02/18/2025 8:54 AM CDT 02/18/2025 8:57 AM CDT Meli Power MD LAB URINE ORDERABLES Alejandra dover Result [facility] 1 [facility] Department [place] [address] * XR Spine Lumbar 2 or 3 Views (02/18/2025 7:46 AM CDT) Anatomical Region Laterality Modality Spine N/A Computed Radiogr aphy 02/18/2025 8:39 AM CDT Narrative 02/18/2025 8:40 AM CDT EXAM DESCRIPTION: 1. XR SPINE THORACIC 3 VIEWS; XR SPINE LUMBAR 2 OR 3 VIEWS REASON FOR STUDY: pain back pain since today. Pt reports her whole back hurts. No known injury. Pt reports she has had this pain before and was checked out pain mostly mid left side FINDINGS: Three views of the thoracic spine and three views of the lumbar spine are submitted for interpretation. No prior examination is available for comparison. Alignment of the thoracic spine is anatomic. The disc heights are normal. No compression fracture. Mild lumbar levocurvature. Disc heights are normal. No compression fracture. IMPRESSION: 1. Normal thoracic and lumbar spine radiographs. THIS IS AN ELECTRONICALLY VERIFIED FINAL REPORT 02/18/2025 8:40 AM - Electronically signed by Raymon Hernandez M.D. TH: TH Report ID: [id number] Reading Location: [place] [address] Procedure Note Raymon Hernandez MD - 02/18/2025 EXAM DESCRIPTION: 1. XR SPINE THORACIC 3 VIEWS; XR SPINE LUMBAR 2 OR 3 VIEWS REASON FOR STUDY: pain back pain since today. Pt reports her whole back hurts. No known injury.Pt reports she has had this pain before and was checked out pain mostly midleft side FINDINGS: Three views of the thoracic spine and three views of the lumbar spine are submitted for interpretation. No prior examination is available for comparison. Alignment of the thoracic spine is anatomic. The disc heights are normal.No compression fracture. Mild lumbar levocurvature. Disc heights are normal. No compressionfracture. IMPRESSION: 1. Normal thoracic and lumbar spine radiographs. THIS IS AN ELECTRONICALLY VERIFIED FINAL REPORT 02/18/2025 8:40 AM - Electronically signed by Raymon Hernandez M.D. TH: TH Report ID: [id number] Reading Location: [place] [address] Meli Power MD IMG XR PROCEDURES Final R esult * XR Spine Thoracic 3 Vw (02/18/2025 7:46 AM CDT) Anatomical Region Laterality Modality Spine N/A Computed Radiogr aphy 02/18/2025 8:39 AM CDT Narrative 02/18/2025 8:40 AM CDT EXAM DESCRIPTION: 1. XR SPINE THORACIC 3 VIEWS; XR SPINE LUMBAR 2 OR 3 VIEWS REASON FOR STUDY: pain back pain since today. Pt reports her whole back hurts. No known injury. Pt reports she has had this pain before and was checked out pain mostly mid left side FINDINGS: Three views of the thoracic spine and three views of the lumbar spine are submitted for interpretation. No prior examination is available for comparison. Alignment of the thoracic spine is anatomic. The disc heights are normal. No compression fracture. Mild lumbar levocurvature. Disc heights are normal. No compression fracture. IMPRESSION: 1. Normal thoracic and lumbar spine radiographs. THIS IS AN ELECTRONICALLY VERIFIED FINAL REPORT 02/18/2025 8:40 AM - Electronically signed by Raymon Hernandez M.D. TH: TH Report ID: [id number] Reading Location: [id number] Procedure Note Raymon Hernandez MD - 02/18/2025 EXAM DESCRIPTION: 1. XR SPINE THORACIC 3 VIEWS; XR SPINE LUMBAR 2 OR 3 VIEWS REASON FOR STUDY: pain back pain since today. Pt reports her whole back hurts. No known injury.Pt reports she has had this pain before and was checked out pain mostly midleft side FINDINGS: Three views of the thoracic spine and three views of the lumbar spine are submitted for interpretation. No prior examination is available for comparison. Alignment of the thoracic spine is anatomic. The disc heights are normal.No compression fracture. Mild lumbar levocurvature. Disc heights are normal. No compressionfracture. IMPRESSION: 1. Normal thoracic and lumbar spine radiographs. THIS IS AN ELECTRONICALLY VERIFIED FINAL REPORT 02/18/2025 8:40 AM - Electronically signed by Raymon Hernandez M.D. TH: Report ID: [id number] Reading Location: [id number] Meli Power MD IMG XR PROCEDURES Final R esult from Last [address] [place] [address] [facility] Member Subscriber Plan / Payer (Ef fective 2022-Present) Name:Neha Garcia I Relation to Subscriber:Self Name:GarciaNeha I Payer ID:[id number] (NAIC) Group ID:Not on file Type:MEDICAID RISK OTHER Address: ATTN: CLAIMS DEPT [address] [place] [id number] [facility] Care Teams Mexican Food Cook Relationship Specialty Start Date End Date No, Physician PCP - General 02/18/25 Jorge Malagon MD Neurology 11/28/22
[2025-03-28 16:52] VITALS: BP 133/71; PULSE 103; RESP 20; TEMP 36.6; O2SAT 100
--- NOTE | 2025-03-28 17:22 | ED_ITS ---
HPI - Extremity Problem General Chief complaint: Extremity Problem,Nontraumatic Stated complaint: left leg pain Time Seen by Provider: 03/28/25 17:00 Source: patient and RN notes reviewed Mode of arrival: ambulatory Limitations: no limitations History of Present Illness HPI Narrative: 20-year-old female presents Express Care complaining of left lateral thigh pain for the last 2 days. Patient denies any falls or injury. Patient says the certain movements the pain radiates up into her left lower back. Patient reports recent surgery for cholecystectomy last month. Patient reports the same day surgery. Patient denies any chest pain or shortness of breath. Patient denies any prolonged traveling recently or taking any control. Patient denies any leg swelling, bruising, redness, fevers, body aches, chills, or other symptoms. Related Data Home Medications ?Medication ?Instructions ?Recorded ?Confirmed ?Last Taken ?Type cholecalciferol (vitamin D3) 50 2,000 unit PO DAILY 09/14/23 Unknown History mcg (2,000 unit) tablet (Vitamin D3) levetiracetam 500 mg tablet 500 mg PO DAILY 09/14/23 0 09/14/23 Unknown History pyridoxine (vitamin B6) 50 mg 50 mg PO DAILY 09/14/23 09/14/23 Unknown History tablet Allergies Allergy/AdvReac Type Severity Reaction Status Date / Time No Known Allergies Allergy Verified 03/28/25 16:55 Review of Systems Review of Systems: CONSTITUTIONAL: Denies fever, chills, or sweats. EYES: Denies visual changes, redness, or discharge. ENT: Denies rhinorrhea, congestion, sore throat, or otalgia. CARDIOVASCULAR: Denies chest pain, palpitations, dizziness, lightheadedness, or edema. RESPIRATORY: Denies cough or dyspnea. GASTROINTESTINAL: Denies abdominal pain, nausea, vomiting, or diarrhea. GENITOURINARY: Denies dysuria or hematuria. SKIN: Denies rash or itching. MUSCULOSKELETAL: Denies back pain, joint pain, or myalgia. Positive for leg pain. NEUROLOGIC: Denies headache, numbness, or weakness. PSYCHIATRIC: Denies anxiety or depression. All other systems reviewed are negative, except as documented in HPI. PMFSH Comments At the time of my signature, I reviewed and agree with the nursing past medical, surgical, social, and family history. There is no relevant family history pertinent to the patient complaint. Exam Narrative: GENERAL: This is a well-nourished, well-developed adult, in no apparent distress. They are non ill-appearing, nontoxic appearing. HEAD: normocephalic, atraumatic. EYES: Sclera clear/white. Conjunctiva normal. Vision is grossly intact. Extraocular movements intact EARS: External ears normal, Hearing grossly intact. NOSE: External nose normal THROAT: Mucous membranes moist, NECK: Neck supple, CARDIOVASCULAR: Regular rate and rhythm RESPIRATORY: Respiratory rate normal, respiratory effort nonlabored, no respiratory distress SKIN: warm, Dry, intact with no suspicious lesions or rash, good texture and turgor. NEURO: awake, alert, and oriented to person, place and time. There were no obvious focal neurologic abnormalities. EXTREMITIES: Left thigh: Mild tenderness to the left lateral thigh, there is pain to the posterior thighs throughout the deep vein system. No palpable cord. Obvious swelling or edema. No injury, no bruising, no redness. Capillary refill less than 2 seconds. Sensation intact. Neurovascular status intact distally. Course Course Emergency Course: Portions of this record may have been created with voice recognition software Level of Care: Express Care Visit Vital Signs Vital signs: Vital Signs Temperature 97.9 F 03/28/25 16:52 Pulse Rate 103 H 03/28/25 16:52 Respiratory Rate 20 03/28/25 16:52 Blood Pressure 133/71 03/28/25 16:52 Pulse Oximetry 100 03/28/25 16:52 Oxygen Delivery Room Air 03/28/25 16:52 Temperature 97.9 F 03/28/25 16:52 Pulse Rate 103 H 03/28/25 16:52 Respiratory Rate 20 03/28/25 16:52 Blood Pressure 133/71 03/28/25 16:52 Pulse Oximetry 100 03/28/25 16:52 Oxygen Delivery Room Air 03/28/25 16:52 Reviewed MDM - Extremity (Nontraumatic) MDM Narrative Medical decision making narrative: Wells score 2 cannot definitively rule out DVT. No chest pain, no shortness of breath, patient nontoxic appearing, no apparent distress. Given patient's sympt oms, it is recommend the patient seek a higher level care and proceed immediately to the emergency department. Patient requires possible lab work and potential for sign imaging to rule out DVT. This express care does not have those capabilities. Patient is agreeable to go to [facility] ER. Called over to [facility] ER and spoke to eric Rueda who is aware this patient and Dr. Glasgow accepted this patient for transfer. Patient advised to remain NPO proceed immediately to the ER. Patient's weight from will take her via private vehicle. Patient hemodynamically stable take herself to the hospital. Differential Diagnosis Differential diagnosis: Likely deep vein thrombosis of lower extremity and other (Muscle strain, sciatica) Critical Care Time Critical Care Time Critical Care Time: No Discharge Plan Discharge Clinical Impression: Acute pain of left thigh Patient Disposition: Acute Care Hospital Condition: Stable Patient Language: Latvian Prescriptions: No Action levetiracetam 500 mg tablet 500 mg PO DAILY pyridoxine (vitamin B6) 50 mg tablet 50 mg PO DAILY cholecalciferol (vitamin D3) [Vitamin D3] 50 mcg (2,000 unit) tablet 2,000 unit PO DAILY Follow-up/Referrals: PHYSICIAN NOT ON STAFF,NONSTAFF [Primary Care Provider] Time of Disposition: 17:22
== END 2025-03-28 17:28 | disposition short-term general hospital (02) ==
LOC: EXPBETH 16:48
DX: M79.652 Pain in left thigh (principal); G40.909 Epilepsy, unspecified, not intractable, without status epilepticus
CPT/HCPCS: 99212; G0463